=== PATIENT | female | born 1975 | race Hispanic/Latino ===

== ENCOUNTER 2018-02-25 15:41 | Emergency (ER) | payer OTHER ==
[2018-02-25] MEDS ORDERED: NACL 0.9% 1000 ML 1,000 ML IV ONE (15:54)
[2018-02-25 16:21] LABS: Basophils # (Auto) 0.1 K/mm3 (0.0-0.1); Basophils % (Auto) 0.7 % (0.0-1.8); Eosinophils # (Auto) 0.2 K/mm3 (0.0-0.4); Eosinophils % (Auto) 1.2 % (0.0-4.3); Lymphocytes # (Auto) 2.8 K/mm3 (1.2-5.4); Lymphocytes % (Auto) 20.1 % (13.4-35.0); Mean Corpuscular HGB Conc 35 % (30-34); Mean Corpuscular Hemoglobin 31 pg (28-32); Mean Corpuscular Volume 88 fl (79-97); Monocytes # (Auto) 0.6 K/mm3 (0.0-0.8); Monocytes % (Auto) 4.3 % (0.0-7.3); Platelet Count 363 K/mm3 (140-440); Red Blood Count 5.49 M/mm3 (3.65-5.03); Red Cell Distribution Width 12.8 % (13.2-15.2)
[2018-02-25] MEDS ORDERED: HALDOL IM STA ×2 (16:21→17:55)
[2018-02-25] MEDS ORDERED: XYLOCAINE CARDIAC IV ONE (16:21)
--- NOTE | 2018-02-25 16:22 | Emergency Department Report ---
ED General Adult HPI - General Chief complaint: Abdominal Pain Stated complaint: CANCER/INTESTINAL PAIN/SEVERE PAIN/ANXIETY Time Seen by Provider: 02/25/18 16:08 Source: patient, RN notes reviewed, old records reviewed Mode of arrival: Stretcher Limitations: No Limitations - History of Present Illness Initial comments: Gastroenterology: Dr. Simpson Pain Specialist: Dr. Dipak Mills X This is a 42-year-old female. I have evaluated this patient in the past. Her past medical history includes anxiety, depression, drug abuse, narcotic dependence, chronic narcotic use, recently evaluated in this hospital in December for abdominal pain, headache CT scan of the abdomen and pelvis which demonstrated a mass next to the sigmoid colon, suspicious for recurrent or metastatic carcinoma. The patient presents to the ER with a complaint of acute on chronic right-sided abdominal pain. The pain is sharp, burning, aching, intermittent, does not radiate anywhere, and does not really have exacerbating or relieving factors. The patient denies fevers, chills, endorses nausea, denies diarrhea, and denies urinary symptoms. -: Gradual, week(s), month(s), year(s) Location: abdomen Quality: burning, stabbing, aching Consistency: intermittent Improves with: none Worsens with: none Associated Symptoms: loss of appetite, malaise, nausea/vomiting, weakness, other (anxiety, weakness). denies: confusion, chest pain, cough, diaphoresis, fever/chills, headaches, rash, seizure, shortness of breath, syncope - Related Data Home Medications Medication Instructions Recorded Confirmed Last Taken ALPRAZolam [Xanax TAB] 1 mg PO TID PRN 04/24/15 04/24/15 04/23/15 Bentyl 1 tab PO HS 04/24/15 04/24/15 04/23/15 Percocet 10/325 mg 10 - 325 mg PO Q6H 04/24/15 04/25/15 04/24/15 Wellbutrin SR 300 mg PO DAILY 04/24/15 04/24/15 04/21/15 traZODone [Desyrel] 100 mg PO HS 04/24/15 04/24/15 04/23/15 Previous Rx's Medication Instructions Recorded Last Taken Type Ibuprofen [Motrin 800 MG tab] 800 mg PO Q8HR PRN #20 tablet 12/15/17 Unknown Rx Promethazine [Phenergan TAB] 25 mg PO Q6HR PRN #20 tab 12/15/17 Unknown Rx oxyCODONE /ACETAMINOPHEN [Percocet 1 - 2 tab PO Q6HR PRN #14 tablet 12/15/17 Unknown Rx 5/325] Dicyclomine [Bentyl] 10 mg PO QID PRN #20 capsule 02/25/18 Unknown Rx Ondansetron [Zofran Odt] 4 mg PO Q8HR PRN #20 tab.rapdis 02/25/18 Unknown Rx Promethazine [Phenergan SUPPOS] 50 mg PA Q6H PRN #20 supp.rect 02/25/18 Unknown Rx Allergies Allergy/AdvReac Type Severity Reaction Status Date / Time Sulfa (Sulfonamide Allergy Vomiting Verified 12/14/17 20:34 Antibiotics) ED Review of Systems ROS: Stated complaint: CANCER/INTESTINAL PAIN/SEVERE PAIN/ANXIETY Other details as noted in HPI Constitutional: malaise. denies: fever Eyes: denies: eye discharge ENT: denies: epistaxis Respiratory: denies: cough Cardiovascular: denies: chest pain Gastrointestinal: abdominal pain, nausea Genitourinary: denies: dysuria Musculoskeletal: arthralgia, myalgia Skin: denies: rash, lesions Neurological: weakness Psychiatric: anxiety ED Past Medical Hx - Past Medical History Hx Hypertension: Yes Hx Diabetes: Yes Hx of Cancer: Yes (awaiting a defenitive diagnosis) Hx Psychiatric Treatment: Yes (Anxiety, Depression) Additional medical history: Drug abuse, IBS - Surgical History Hx Cholecystectomy: Yes Additional Surgical History: Novasure, Ovarian surgery, Multiple Abd. hernia repair, Hysterectomy, C section - Social History Smoking Status: Current Every Day Smoker - Medications Home Medications: Home Medications Medication Instructions Recorded Confirmed Last Taken Type ALPRAZolam [Xanax TAB] 1 mg PO TID PRN 04/24/15 04/24/15 04/23/15 History Bentyl 1 tab PO HS 04/24/15 04/24/15 04/23/15 History Percocet 10/325 mg 10 - 325 mg PO Q6H 04/24/15 04/25/15 04/24/15 History Wellbutrin SR 300 mg PO DAILY 04/24/15 04/24/15 04/21/15 History traZODone [Desyrel] 100 mg PO HS 04/24/15 04/24/15 04/23/15 History Ibuprofen [Motrin 800 MG tab] 800 mg PO Q8HR PRN #20 tablet 12/15/17 Unknown Rx Promethazine [Phenergan TAB] 25 mg PO Q6HR PRN #20 tab 12/15/17 Unknown Rx oxyCODONE /ACETAMINOPHEN [Percocet 1 - 2 tab PO Q6HR PRN #14 tablet 12/15/17 Unknown Rx 5/325] Dicyclomine [Bentyl] 10 mg PO QID PRN #20 capsule 02/25/18 Unknown Rx Ondansetron [Zofran Odt] 4 mg PO Q8HR PRN #20 tab.rapdis 02/25/18 Unknown Rx Promethazine [Phenergan SUPPOS] 50 mg PA Q6H PRN #20 supp.rect 02/25/18 Unknown Rx ED Physical Exam - General Limitations: No Limitations General appearance: alert, in distress, obese - Head Head exam: Present: atraumatic, normocephalic - Eye Eye exam: Present: normal appearance, EOMI. Absent: nystagmus - ENT ENT exam: Present: normal exam, normal orophraynx, mucous membranes moist, normal external ear exam - Neck Neck exam: Present: normal inspection, full ROM. Absent: tenderness, meningismus - Respiratory Respiratory exam: Present: normal lung sounds bilaterally. Absent: respiratory distress - Cardiovascular Cardiovascular Exam: Present: normal rhythm, tachycardia, normal heart sounds. Absent: systolic murmur, diastolic murmur, rubs, gallop - GI/Abdominal GI/Abdominal exam: Present: soft. Absent: distended, tenderness, guarding, rebound, rigid, pulsatile mass - Extremities Exam Extremities exam: Present: normal inspection, full ROM, other (2+ pulses noted in the bilateral upper, lower extremities. Compartments soft. No long bony tenderness. The pelvis is stable.). Absent: pedal edema, joint swelling, calf tenderness - Back Exam Back exam: Present: normal inspection, full ROM. Absent: tenderness, CVA te nderness (R), paraspinal tenderness, vertebral tenderness - Neurological Exam Neurological exam: Present: alert, oriented X3, CN II-XII intact, other (Extraocular movements intact. Tongue midline. No facial droop. Facial sensation intact to light touch in the V1, V2, V3 distribution bilaterally. 5 and 5 strength in 4 extremities.. Sensation is intact to light touch in 4 extremities.). Absent: motor sensory deficit - Psychiatric Psychiatric exam: Present: anxious - Skin Skin exam: Present: warm, dry, intact, normal color. Absent: rash ED Course Vital Signs 02/25/18 02/25/18 02/25/18 15:50 17:08 17:16 Temperature 97.5 F L Pulse Rate 103 H Respiratory 18 Rate Blood Pressure 161/112 O2 Sat by Pulse 97 96 Oximetry 02/25/18 02/25/18 02/25/18 17:30 17:45 18:00 Temperature Pulse Rate 88 83 Respiratory 11 L 17 Rate Blood Pressure 142/98 161/93 O2 Sat by Pulse 96 95 95 Oximetry 02/25/18 18:15 Temperature Pulse Rate Respiratory Rate Blood Pressure 164/93 O2 Sat by Pulse 95 Oximetry - Reevaluation(s) Reevaluation #1: 02/25/18 17:27 Differential diagnosis, including but not limited to: Irritable bowel syndrome, narcotic dependence, constipation, narcotic bowel syndrome Assessment and plan: 42-year-old female with chronic abdominal pain, had a CT scan at this [facility] within the past 2-1/2 months for same chronic abdominal pain, also on chronic narcotic therapy. Review of [place] prescription database reveals that patient is on chronic oxycodone therapy. High suspicion for narcotic-related bowel pain, narcotic bowel syndrome. We will treat the patient with Haldol, and intravenous lidocaine. Explained to patient see giving him some narcotic bowel syndrome, and recommended that she consult with her pain physician for de-escalation of narcotic therapy. 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 Screening laboratory studies unremarkable with the exception of slight leukocytosis, she's had this in the past, may be related to stress demargination. Abdomen soft and benign, with no rebound, guarding or peritoneal signs. Extensive discussion had with patient and significant other. Through shared decision making, patient prefers not to have CT scan at this [facility], out of concern for ionizing radiation, and increased left eye risk for cancer, tumor, malignancy. Her other objective laboratory studies were unremarkable, she will be given IV fluids, and we will reassess after Haldol and lidocaine administration. Reevaluation #2: 02/25/18 18:49 No active vomiting. Patient wanted to go home. Belly soft. Tachycardia resolved. Patient will be discharged at this time. ED Medical Decision Making - Lab Data Result diagrams: 02/25/18 16:02 02/25/18 16:02 Vital Signs 02/25/18 15:50 Temperature 97.5 F L Pulse Rate 103 H Respiratory 18 Rate Blood Pressure 161/112 Lab Results 02/25/18 02/25/18 02/25/18 Range/Units 15:52 16:02 16:02 WBC 14.0 H (4.5-11.0) K/mm3 RBC 5.49 H (3.65-5.03) M/mm3 Hgb 17.1 H (10.1-14.3) gm/dl Hct 48.3 H (30.3-42.9) % MCV 88 (79-97) fl MCH 31 (28-32) pg MCHC 35 H (30-34) % RDW 12.8 L (13.2-15.2) % Plt Count 363 (140-440) K/mm3 Lymph % (Auto) 20.1 (13.4-35.0) % [place] % (Auto) 4.3 (0.0-7.3) % Eos % (Auto) 1.2 (0.0-4.3) % Baso % (Auto) 0.7 (0.0-1.8) % Lymph # 2.8 (1.2-5.4) K/mm3 [place] # 0.6 (0.0-0.8) K/mm3 Eos # 0.2 (0.0-0.4) K/mm3 Baso # 0.1 (0.0-0.1) K/mm3 Seg Neutrophils % 73.7 H (40.0-70.0) % Seg Neutrophils # 10.3 H (1.8-7.7) K/mm3 Sodium 136 L (137-145) mmol/L Potassium 4.0 (3.6-5.0) mmol/L Chloride 99.4 (98-107) mmol/L Carbon Dioxide 22 (22-30) mmol/L Anion Gap 19 mmol/L BUN 13 (7-17) mg/dL Creatinine 0.6 L (0.7-1.2) mg/dL Estimated GFR > 60 ml/min BUN/Creatinine Ratio 22 % Glucose 141 H (65-100) mg/dL POC Glucose 121 H (70-105) Calcium 9.5 (8.4-10.2) mg/dL Total Bilirubin 0.20 (0.1-1.2) mg/dL AST 21 (5-40) units/L ALT 18 (7-56) units/L Alkaline Phosphatase 92 (35-129) units/L Total Protein 7.5 (6.3-8.2) g/dL Albumin 4.5 (3.9-5) g/dL Albumin/Globulin Ratio 1.5 % Amylase (27-131) units/L Lipase (13-60) units/L HCG, Quant (0-4) mIU/mL 02/25/18 02/25/18 Range/Units 16:02 16:24 WBC (4.5-11.0) K/mm3 RBC (3.65-5.03) M/mm3 Hgb (10.1-14.3) gm/dl Hct (30.3-42.9) % MCV (79-97) fl MCH (28-32) pg MCHC (30-34) % RDW (13.2-15.2) % Plt Count (140-440) K/mm3 Lymph % (Auto) (13.4-35.0) % [place] % (Auto) (0.0-7.3) % Eos % (Auto) (0.0-4.3) % Baso % (Auto) (0.0-1.8) % Lymph # (1.2-5.4) K/mm3 [place] # (0.0-0.8) K/mm3 Eos # (0.0-0.4) K/mm3 Baso # (0.0-0.1) K/mm3 Seg Neutrophils % (40.0-70.0) % Seg Neutrophils # (1.8-7.7) K/mm3 Sodium (137-145) mmol/L Potassium (3.6-5.0) mmol/L Chloride (98-107) mmol/L Carbon Dioxide (22-30) mmol/L Anion Gap mmol/L BUN (7-17) mg/dL Creatinine (0.7-1.2) mg/dL Estimated GFR ml/min BUN/Creatinine Ratio % Glucose (65-100) mg/dL POC Glucose (70-105) Calcium (8.4-10.2) mg/dL Total Bilirubin (0.1-1.2) mg/dL AST (5-40) units/L ALT (7-56) units/L Alkaline Phosphatase (35-129) units/L Total Protein (6.3-8.2) g/dL Albumin (3.9-5) g/dL Albumin/Globulin Ratio % Amylase 59 (27-131) units/L Lipase 62 H (13-60) units/L HCG, Quant < 2 (0-4) mIU/mL Critical care attestation.: If time is entered above; I have spent that time in minutes in the direct care of this critically ill patient, excluding procedure time. ED Disposition Clinical Impression: Abdominal pain Disposition: DC-01 TO HOME OR SELFCARE Is pt being admited?: No Does the pt Need Aspirin: No Condition: Stable Instructions: Abdominal Pain (ED) Additional Instructions: Patient should follow up with their manager of business operations, or their private pain specialist. Symptoms possibly coming from or receiving contribution from narcotic bowel syndrome. I recommend gradual de-escalation of chronic narcotic therapy, and this should be arranged and coordinated with your manager of business operations, or your pain specialist. Symptoms will likely take a few weeks to a few months to resolve. Advance diet as tolerated. I'll awoke with the aforementioned physicians within the next 2 weeks. Please return to the ER right away with lethargy, irritability, projectile vomiting, change in mental status, confusion, inability to speak, inability to breathe, new, worsening or different symptoms. Rehabilitation physicians [facility]: [address] [place], [place] [address] Referrals: MEAGHAN SIMPSON MD [Staff Physician] - 3-5 Days
[2018-02-25 16:26] LABS: Hematocrit 48.3 % (30.3-42.9); Hemoglobin 17.1 gm/dl (10.1-14.3)
[2018-02-25 16:31] LABS: Lipase 62 units/L (13-60)
[2018-02-25 16:34] LABS: Alanine Aminotransferase 18 units/L (7-56); Albumin 4.5 g/dL (3.9-5); BUN/Creatinine Ratio 22; Blood Urea Nitrogen 13 mg/dL (7-17); Calcium 9.5 mg/dL (8.4-10.2); Hemolysis Index 35
[2018-02-25 19:03] VITALS: BP 149/99
== END 2018-02-25 19:03 | disposition home or self-care (01) ==
LOC: ED 15:41
DX: G89.29 Other chronic pain (principal); R10.9 Unspecified abdominal pain; I10 Essential (primary) hypertension; E11.9 Type 2 diabetes mellitus without complications; Z90.710 Acquired absence of both cervix and uterus; Z90.49 Acquired absence of other specified parts of digestive tract; Z88.2 Allergy status to sulfonamides
CPT/HCPCS: 36415; 80053; 82150; 82962; 83690; 84702; 85025; 96372; 96374; 99283; J1630; J2001; J7030; 96361

== ENCOUNTER 2019-12-30 04:46 | Emergency (ER) | payer OTHER ==
[2019-12-30] MEDS ORDERED: hydrALAZINE 20 MG/1 ML INJ IV ONE (05:39)
[2019-12-30 06:18] LABS: Basophils % (Auto) 0.3 % (0.0-1.8); Eosinophils # (Auto) 0.1 K/mm3 (0.0-0.4); Eosinophils % (Auto) 0.9 % (0.0-4.3); Hemoglobin 16.1 gm/dl (10.1-14.3); Lymphocytes # (Auto) 2.6 K/mm3 (1.2-5.4); Lymphocytes % (Auto) 20.5 % (13.4-35.0); Mean Corpuscular HGB Conc 35 % (30-34); Mean Corpuscular Volume 85 fl (79-97); Monocytes # (Auto) 0.7 K/mm3 (0.0-0.8); Monocytes % (Auto) 5.9 % (0.0-7.3); Platelet Count 303 K/mm3 (140-440); Red Blood Count 5.41 M/mm3 (3.65-5.03); Red Cell Distribution Width 12.9 % (13.2-15.2)
[2019-12-30] MEDS ORDERED: ONDANSETRON 4 MG/2 ML INJ IV ONE ×2 (06:33→10:37)
[2019-12-30] MEDS ORDERED: MORPHINE 2 MG/1 ML INJ IV ONE (06:33)
[2019-12-30 06:41] LABS: Blood Urea Nitrogen 8 mg/dL (7-17); Calcium 9.3 mg/dL (8.4-10.2); Hemolysis Index 18
[2019-12-30 06:46] LABS: BUN/Creatinine Ratio 16
--- NOTE | 2019-12-30 06:59 | Emergency Department Report ---
ED Headache HPI - General Chief Complaint: Headache Stated Complaint: HEADACHE BACK PAIN Time Seen by Provider: 12/30/19 06:17 - History of Present Illness Initial Comments: This is a 44-year-old female who states that she has had a headache for the past 3 days. She states that it is largely sharp and involves the back of her head and her back generally. She does not have a stiff neck or photophobia. She denies fever or chills. She has had no focal neurological change. She states that she had a telemedicine consult and they doubled her losartan. Headache was persistent at the time of my encounter. Patient had not yet in medicated. The patient did recall a gradual onset of her headache. Review of prior reconciliation indicates the patient have a history of benzodiazepine abuse. She also tells me that she was "just discharged with pancreatitis". I asked her when/where that was and she stated [facility]. Timing/Duration: other (3 days) Quality: moderate, severe Head Injury Location: occipital Recent Head Trauma: frequent headaches (States often associated with hypertension) Associated Symptoms: denies symptoms Allergies/Adverse Reactions: Allergies Sulfa (Sulfonamide Antibiotics) Allergy (Verified 12/14/17 20:34) Vomiting Home Medications: Ambulatory Orders ALPRAZolam [Xanax TAB] 1 mg PO TID PRN 04/24/15 Bentyl 1 tab PO HS 04/24/15 Percocet 10/325 mg 10 - 325 mg PO Q6H 04/24/15 Wellbutrin SR 300 mg PO DAILY 04/24/15 traZODone [Desyrel] 100 mg PO HS 04/24/15 Ibuprofen [Motrin 800 MG tab] 800 mg PO Q8HR PRN #20 tablet 12/15/17 Promethazine [Phenergan TAB] 25 mg PO Q6HR PRN #20 tab 12/15/17 oxyCODONE /ACETAMINOPHEN [Percocet 5/325] 1 - 2 tab PO Q6HR PRN #14 tablet 12/15/17 Dicyclomine [Bentyl] 10 mg PO QID PRN #20 capsule 02/25/18 Promethazine [Phenergan SUPPOS] 50 mg NM Q6H PRN #20 supp.rect 02/25/18 ALPRAZolam [Xanax TAB] 1 mg PO QID PRN #6 tab 03/02/18 Butalb/Acetamin/Caff 50-325-40 [Fioricet 50-325-40] 1 tab PO Q6HR PRN #7 tab 12/30/19 Ondansetron [Zofran ODT TAB] 4 mg PO Q8HR PRN #7 tab.rapdis 12/30/19 labetaloL [Labetalol 200mg TAB] 200 mg PO BID #60 tablet 12/30/19 ED Review of Systems ROS: Stated complaint: HEADACHE BACK PAIN Other details as noted in HPI Constitutional: denies: chills, fever Eyes: denies: eye pain, vision change ENT: denies: ear pain, throat pain Respiratory: denies: cough, shortness of breath Cardiovascular: denies: chest pain, palpitations Endocrine: no symptoms reported Gastrointestinal: nausea. denies: abdominal pain Genitourinary: denies: urgency, dysuria, discharge Musculoskeletal: denies: back pain, arthralgia Skin: denies: rash, lesions Neurological: denies: headache, weakness, paresthesias Psychiatric: denies: anxiety, depression Hematological/Lymphatic: denies: easy bleeding, easy bruising ED Past Medical Hx - Past Medical History Hx Hypertension: Yes Hx Diabetes: Yes Hx Psychiatric Treatment: Yes (Anxiety, Depression) Additional medical history: Drug abuse, IBS - Surgical History Hx Cholecystectomy: Yes Additional Surgical History: Novasure, Ovarian surgery, Multiple Abd. hernia repair, Hysterectomy, C section - Social History Smoking Status: Current Every Day Smoker Substance Use Type: None - Medications Home Medications: Home Medications Medication Instructions Recorded Confirmed Last Taken Type ALPRAZolam [Xanax TAB] 1 mg PO TID PRN 04/24/15 04/24/15 04/23/15 History Bentyl 1 tab PO HS 04/24/15 04/24/15 04/23/15 History Percocet 10/325 mg 10 - 325 mg PO Q6H 04/24/15 04/25/15 04/24/15 History Wellbutrin SR 300 mg PO DAILY 04/24/15 04/24/15 04/21/15 History traZODone [Desyrel] 100 mg PO HS 04/24/15 04/24/15 04/23/15 History Ibuprofen [Motrin 800 MG tab] 800 mg PO Q8HR PRN #20 tablet 12/15/17 Unknown Rx Promethazine [Phenergan TAB] 25 mg PO Q6HR PRN #20 tab 12/15/17 Unknown Rx oxyCODONE /ACETAMINOPHEN [Percocet 1 - 2 tab PO Q6HR PRN #14 tablet 12/15/17 Unknown Rx 5/325] Dicyclomine [Bentyl] 10 mg PO QID PRN #20 capsule 02/25/18 Unknown Rx Promethazine [Phenergan SUPPOS] 50 mg NM Q6H PRN #20 supp.rect 02/25/18 Unknown Rx ALPRAZolam [Xanax TAB] 1 mg PO QID PRN #6 tab 03/02/18 Unknown Rx Butalb/Acetamin/Caff 50-325-40 1 tab PO Q6HR PRN #7 tab 12/30/19 Unknown Rx [Fioricet 50-325-40] Ondansetron [Zofran ODT TAB] 4 mg PO Q8HR PRN #7 tab.rapdis 12/30/19 Unknown Rx labetaloL [Labetalol 200mg TAB] 200 mg PO BID #60 tablet 12/30/19 Unknown Rx ED Physical Exam - General Limitations: Physical Limitation General appearance: obese - Head Head exam: Present: atraumatic, normocephalic - Eye Eye exam: Present: normal appearance. Absent: scleral icterus - ENT ENT exam: Present: mucous membranes moist - Neck Neck exam: Present: normal inspection. Absent: tenderness, meningismus - Respiratory Respiratory exam: Present: normal lung sounds bilaterally. Absent: respiratory distress - Cardiovascular Cardiovascular Exam: Present: regular rate, normal rhythm. Absent: systolic murmur, diastolic murmur, rubs, gallop - GI/Abdominal GI/Abdominal exam: Present: soft, normal bowel sounds. Absent: distended, tenderness, guarding, rebound - Extremities Exam Extremities exam: Present: normal inspection - Back Exam Back exam: Present: normal inspection - Neurological Exam Neurological exam: Present: alert, oriented X3, CN II-XII intact. Absent: motor sensory deficit - Psychiatric Psychiatric exam: Present: normal affect, normal mood - Skin Skin exam: Present: warm, dry, intact, normal color. Absent: rash ED Course Vital Signs 12/30/19 12/30/19 12/30/19 05:02 06:09 06:54 Temperature 98.6 F Pulse Rate 87 90 92 H Respiratory 20 18 Rate Blood Pressure 200/120 Blood Pressure 200/120 173/104 [Left] O2 Sat by Pulse 97 98 Oximetry 12/30/19 12/30/19 12/30/19 08:49 10:44 10:46 Temperature Pulse Rate 90 90 Respiratory Rate Blood Pressure 173/105 Blood Pressure 179/109 173/105 [Left] O2 Sat by Pulse 95 98 Oximetry 12/30/19 12/30/19 11:00 11:37 Temperature Pulse Rate 87 Respiratory Rate Blood Pressure 189/119 202/127 Blood Pressure [Left] O2 Sat by Pulse Oximetry - Reevaluation(s) Reevaluation #1: Patient appears comfortable and in no distress on reevaluation. She is neurologically intact. Review of her prior records does indicate that she has a history of narcotics dependency and pain management. Her blood pressure is now about 170/100. She has been given additional medication for this. Her CTAs and plain CTs are normal. She states that "my headache is gone but I need something for my migraine". She cannot be more specific as to what that means. She does not have any prodromal or migraine related type symptoms. She is appropriate for outpatient management. 12/30/19 11:47 ED Medical Decision Making - Lab Data Result diagrams: 12/30/19 05:53 12/30/19 05:53 Critical care attestation.: If time is entered above; I have spent that time in minutes in the direct care of this critically ill patient, excluding procedure time. ED Disposition Clinical Impression: Uncontrolled hypertension Cephalgia Qualifiers: Headache type: unspecified Headache chronicity pattern: acute headache Intractability: not intractable Qualified Code(s): R51.9 - Headache, unspecified Disposition: DC-01 TO HOME OR SELFCARE Is pt being admited?: No Does the pt Need Aspirin: No Condition: Stable Instructions: Hypertension (ED), Acute Headache (ED), Migraine Headache (ED) Additional Instructions: Return any acute change or problem. Frequent monitoring of your blood pressure is necessary. Follow-up with the [facility] preferably tomorrow. Prescriptions: Butalb/Acetamin/Caff 50-325-40 [Fioricet 50-325-40] 1 tab PO Q6HR PRN #7 tab PRN Reason: Headache labetaloL [Labetalol 200mg TAB] 200 mg PO BID #60 tablet Ondansetron [Zofran ODT TAB] 4 mg PO Q8HR PRN #7 tab.rapdis PRN Reason: Nausea Referrals: PRIMARY CARE, [Primary Care Provider] - 3-5 Days [facility] [Provider Group] - 24 Hours Time of Disposition: 11:49
--- NOTE | 2019-12-30 06:59 | Cat Scan Report ---
CT HEAD/BRAIN WO CON INDICATION / CLINICAL INFORMATION: Headache. TECHNIQUE: All CT scans at this location are performed using CT dose reduction for ALARA by means of automated e xposure control. COMPARISON: None available. FINDINGS: The ventricular system is normal in size and configuration. No focal lesion or mass effect is seen. T here is no evidence of intracranial hemorrhage or major vessel occlusion. There is mucosal thickening and fluid in both maxillary antra, right greater than left. The other par anasal sinuses and mastoid air cells are clear. The calvarium is intact. IMPRESSION: 1. No acute intracranial abnormality. 2. Bilateral acute maxillary sinusitis, greater on the right. Signer Name: Tomas London MD Signed: 12/30/2019 6:55 AM Workstation Name: [id number]
[2019-12-30 07:24] LABS: Amphetamine Screen,Urine Negative; Benzodiazepines Screen,Urine Negative; Cannabinoid Screen,Urine Negative; Cocaine Screen,Urine Negative; Methadone Screen,Urine Negative; Opiate Screen,Urine Negative
[2019-12-30 07:29] LABS: Bacteria,Urine 2+ /HPF (Negative); Bilirubin,Urine NEG (Negative); Blood,Urine SM (Negative); Color,Urine Straw (Yellow); Urobilinogen,Urine < 2.0 mg/dL (<2.0)
[2019-12-30] MEDS ORDERED: HYDROmorphone 1 MG/1 ML INJ IV ONE (08:33)
[2019-12-30] MEDS ORDERED: diphenhydrAMINE 50 MG/ML VIAL IV ONE (08:33)
[2019-12-30 09:18] LABS: HCG Qualitative,Urine Negative (Negative)
[2019-12-30] MEDS ORDERED: ONDANSETRON 4 MG/2 ML INJ ONE (09:32)
--- NOTE | 2019-12-30 10:28 | Cat Scan Report ---
CT angio head INDICATION / CLINICAL INFORMATION: 44 years Female; MAIN. Headache TECHNIQUE: Thin cut axial images obtained through the head during IV bolus contrast administration. S agittal, coronal, and 3 plane MIP reconstructions performed by the technologist. NASCET type criteria used evaluate stenoses. Automated exposure control utilized for radiation reduction purposes. COMPARISON: None available. FINDINGS: INTERNAL CAROTID ARTERIES: No significant narrowing appreciated. Minimal atherosclerotic disease note d. VERTEBROBASILAR SYSTEM: No significant narrowing appreciated. DISTAL BRANCHES: Distal branches of the anterior, middle, and posterior cerebral arteries are fairly symmetric in appearance and number. ANEURYSM: None identified. ADDITIONAL FINDINGS: Moderate mucosal thickening with significant air-fluid level seen in both maxill teja antra-acute sinusitis suggested, which may be a source of headaches. Developmental venous anomaly seen in the right frontal lobe-of no clinical significance. IMPRESSION: 1. No significant abnormality on this CTA of the head. 2. Acute sinus inflammatory disease suggested. Signer Name: Marquis Stevens MD, III Signed: 12/30/2019 10:23 AM Workstation Name: [id number]
[2019-12-30] MEDS ORDERED: KETOROLAC 30 MG/1 ML INJ ONE (10:35)
--- NOTE | 2019-12-30 10:36 | Cat Scan Report ---
CT angio neck INDICATION / CLINICAL INFORMATION: 44 years Female; headache. TECHNIQUE: Thin cut axial images obtained through the head during IV bolus contrast administration. S agittal, coronal, and 3 plane MIP reconstructions performed by the technologist. NASCET type criteria used evaluate stenoses. All CT scans at this location are performed using CT dose reduction for ALAR A by means of automated exposure control. COMPARISON: None available. FINDINGS: ARCH: Normal aortic arch branching suggested. CAROTID ARTERIES: The visualized common and internal carotid arteries are widely patent. VERTEBRAL ARTERIES: Slight left dominant vertebral system seen. No significant stenosis appreciated. ADDITIONAL FINDINGS: Air-fluid levels seen in both maxillary antra with significant mucosal thickenin g seen on the right, as well. These findings certainly could be a cause for patient's headaches. There is mild asymmetry in the appearance of the vocal cords, although no discrete lesion is identifi ed. Please clinically correlate. IMPRESSION: No significant stenosis appreciated on this CTA of the neck. Signer Name: Marquis Stevens MD, III Signed: 12/30/2019 10:32 AM Workstation Name: [id number]
[2019-12-30] MEDS ORDERED: KETOROLAC 30 MG/1 ML INJ IV ONE (10:38)
[2019-12-30] MEDS ORDERED: METOCLOPRAMIDE 10 MG/2 ML INJ ONE (10:43)
[2019-12-30] MEDS ORDERED: METOCLOPRAMIDE 10 MG/2 ML INJ IV ONE (10:45)
[2019-12-30 12:12] VITALS: BP 169/103
== END 2019-12-30 12:12 | disposition home or self-care (01) ==
LOC: ED 04:46
DX: R51.9 Headache, unspecified (principal); M54.6 Pain in thoracic spine; I10 Essential (primary) hypertension; E11.9 Type 2 diabetes mellitus without complications; F41.9 Anxiety disorder, unspecified; F32.9 Major depressive disorder, single episode, unspecified; F17.200 Nicotine dependence, unspecified, uncomplicated; Z90.710 Acquired absence of both cervix and uterus; Z98.890 Other specified postprocedural states; Z79.1 Long term (current) use of non-steroidal anti-inflammatories (NSAID); Z79.899 Other long term (current) drug therapy; Z88.2 Allergy status to sulfonamides
CPT/HCPCS: 36415; 70450; 70496; 70498; 80048; 80307; 81001; 81025; 84703; 85025; 96374; 96375; 96376; 99285; J0360; J1170; J1200; J1885; J2270; J2405; J2765; Q9967

== ENCOUNTER 2020-08-17 07:12 | Emergency (ER) | payer OTHER ==
[2020-08-17] MEDS ORDERED: SODIUM CHLORIDE 0.9% 500 ML 500 ML IV ONE (07:48)
[2020-08-17] MEDS ORDERED: SODIUM CHLORIDE 0.9% 1000 ML IV SOLN IV ONE (07:53)
--- NOTE | 2020-08-17 07:53 | Event Note ---
ED Screening Note ED Screening Note: reports broken ac in her home she has been laying in sweat and now has numerous boils. low grade temp and tachycardia-- ? dehydration from heat code sepsis called by RN This initial assessment/diagnostic orders/clinical plan/treatment(s) is/are subject to change based on patients health status, clinical progression and re- assessment by fellow clinical providers in the ED. Further treatment and workup at subsequent clinical providers discretion. Patient/guardian urged not to elope from the ED as their condition may be serious if not clinically assessed and managed. Initial orders include: lab xray cultures
[2020-08-17] MEDS ORDERED: cefTRIAXone/NS 2 GM/100 ML 2 GM/100 ML BAG IV ONE (08:06)
--- NOTE | 2020-08-17 08:22 | XRay Report ---
CHEST 1 VIEW INDICATION: possible Sepsis. Fever. Metastatic ovarian cancer. COMPARISON: 10/10/2019 FINDINGS: Support devices: None. Heart: Within normal limits. Lungs/Pleura: No acute air space or interstitial disease. Additional findings: None. IMPRESSION: No acute findings. Signer Name: Saman Seth Jr, MD Signed: 08/17/2020 8:17 AM Workstation Name: [id number]
[2020-08-17 08:23] LABS: Basophils # (Auto) 0.1 K/mm3 (0.0-0.1); Basophils % (Auto) 0.4 % (0.0-1.8); Eosinophils # (Auto) 0.1 K/mm3 (0.0-0.4); Eosinophils % (Auto) 1.2 % (0.0-4.3); Hematocrit 35.1 % (30.3-42.9); Hemoglobin 12.1 gm/dl (10.1-14.3); Lymphocytes # (Auto) 1.6 K/mm3 (1.2-5.4); Lymphocytes % (Auto) 13.1 % (13.4-35.0); Mean Corpuscular HGB Conc 35 % (30-34); Mean Corpuscular Volume 85 fl (79-97); Monocytes % (Auto) 8.2 % (0.0-7.3); Platelet Count 343 K/mm3 (140-440); Red Blood Count 4.14 M/mm3 (3.65-5.03); Red Cell Distribution Width 13.3 % (13.2-15.2)
[2020-08-17 08:33] LABS: INR 0.91 (0.87-1.13)
--- NOTE | 2020-08-17 08:37 | Emergency Department Report ---
HPI - General Chief Complaint: Skin/Abscess/Foreign Body Time Seen by Provider: 08/17/20 07:52 - HPI HPI: 44-year-old female with history of hypertension, DM 2, and ovarian cancer not currently on treatment presents complaining of 3 weeks of multiple painful boils. She reports that she has had a boil on her right posterior hand and left lateral arm for approximately 3 weeks. She states the pain and swelling as well as the redness at both sites have gotten worse over the last 3 weeks and she developed nausea with several episodes of vomiting. She also states that her air conditioning is broken at her home and says she has been sitting in a pile of sweat. She has not tried taking any antibiotics or applying anything for her symptoms. She reports that the boil on her left arm popped and drained pus last night. She says she has been having subjective fevers but this is difficult to discern given that her air conditioning is broken. She denies any vision change, headache, neck pain, chest pain, shortness of breath, abdominal pain, dysuria, or any other complaints. ED Past Medical Hx - Past Medical History Previous Medical History?: Yes Hx Hypertension: Yes Hx Diabetes: Yes Hx Psychiatric Treatment: Yes (Anxiety, Depression) Additional medical history: Drug abuse, IBS, ovarian cancer - Surgical History Hx Cholecystectomy: Yes Additional Surgical History: Novasure, Ovarian surgery, Multiple Abd. hernia repair, Hysterectomy, C section - Social History Smoking Status: Current Every Day Smoker Substance Use Type: None - Medications Home Medications: Home Medications Medication Instructions Recorded Confirmed Last Taken Type ALPRAZolam [Xanax TAB] 1 mg PO TID PRN 04/24/15 04/24/15 04/23/15 History Bentyl 1 tab PO HS 04/24/15 04/24/15 04/23/15 History Percocet 10/325 mg 10 - 325 mg PO Q6H 04/24/15 04/25/15 04/24/15 History Wellbutrin SR 300 mg PO DAILY 04/24/15 04/24/15 04/21/15 History traZODone [Desyrel] 100 mg PO HS 04/24/15 04/24/15 04/23/15 History Ibuprofen [Motrin 800 MG tab] 800 mg PO Q8HR PRN #20 tablet 12/15/17 Unknown Rx Promethazine [Phenergan TAB] 25 mg PO Q6HR PRN #20 tab 12/15/17 Unknown Rx oxyCODONE /ACETAMINOPHEN [Percocet 1 - 2 tab PO Q6HR PRN #14 tablet 12/15/17 Unknown Rx 5/325] Dicyclomine [Bentyl] 10 mg PO QID PRN #20 capsule 02/25/18 Unknown Rx Promethazine [Phenergan SUPPOS] 50 mg OR Q6H PRN #20 supp.rect 02/25/18 Unknown Rx ALPRAZolam [Xanax TAB] 1 mg PO QID PRN #6 tab 03/02/18 Unknown Rx Butalb/Acetamin/Caff 50-325-40 1 tab PO Q6HR PRN #7 tab 12/30/19 Unknown Rx [Fioricet 50-325-40] Ondansetron [Zofran ODT TAB] 4 mg PO Q8HR PRN #7 tab.rapdis 12/30/19 Unknown Rx labetaloL [Labetalol 200mg TAB] 200 mg PO BID #60 tablet 12/30/19 Unknown Rx ED Review of Systems ROS: Stated complaint: 2 ABSCESS Other details as noted in HPI Constitutional: fever. denies: chills Eyes: denies: eye pain, vision change ENT: denies: throat pain, congestion Respiratory: denies: cough, shortness of breath Cardiovascular: denies: chest pain, palpitations, syncope Endocrine: excessive sweating Gastrointestinal: nausea, vomiting. denies: abdominal pain, diarrhea Genitourinary: denies: dysuria, frequency Musculoskeletal: denies: back pain, myalgia Skin: lesions Neurological: denies: headache, weakness, numbness Physical Exam - Physical Exam Vital Signs: Vital Signs 08/17/20 07:49 Temperature 100.2 F H Pulse Rate 111 H Respiratory 16 Rate Blood Pressure 147/97 [Right] O2 Sat by Pulse 96 Oximetry Physical Exam: GENERAL: Well developed and well nourished. In moderate distress HEENT: Normocephalic. No obvious signs of trauma. Dry mucous membranes EYES: Extraocular movements are intact. Pupils are equal round and reactive to light bilaterally NECK: Supple. Trachea is midline. LUNGS: Nonlabored breathing. Equal chest rise bilaterally. Clear to auscultation bilaterally. HEART/CARDIOVASCULAR: Mild tachycardia but with regular rhythm. No murmurs or rubs. VASCULAR: 2+ peripheral pulses. Cap refill < 2 seconds ABDOMEN: Abdomen is soft and nondistended. There is no significant tenderness, guarding or rebound. SKIN: Skin is warm and dry. To the dorsum of the right hand is a large abscess with overlying erythema and fluctuance. To the lateral aspect of the left mid arm is another large abscess with overlying fluctuance and erythema with a central punctum which is draining some purulent material NEURO: Patient is awake, alert, and oriented. application integration architect II-XII grossly intact. No focal deficits. Normal motor and sensory exam throughout. Normal speech. MUSCULOSKELETAL: No obvious deformities with the exception of swelling at the site of abscesses as noted. Range of motion of all 5 fingers of the right hand is severely limited. Patient is unable to fully flex or extend all of her fingers secondary to swelling and pain. Sensation is intact throughout median, ulnar, and radial nerve distributions. ED Course Vital Signs 08/17/20 07:49 Temperature 100.2 F H Pulse Rate 111 H Respiratory 16 Rate Blood Pressure 147/97 [Right] O2 Sat by Pulse 96 Oximetry - I & D Right Hand Type of Procedure: Simple Site: dorsum Blade Size: 11 I & D Procedure: betadine prep Progress: 3 cc of lidocaine 1% with epinephrine were injected. A 1 cm incision was made with subsequent drainage of copious blood and purulent material Left Arm Type of Procedure: Simple Site: mid Blade Size: 11 I & D Procedure: betadine prep Progress: Approximately 2 cc of lidocaine 1% with epinephrine were injected. 1.5 cm incision was made with subsequent drainage of copious purulent material ED Medical Decision Making - Lab Data Result diagrams: 08/17/20 07:49 08/17/20 07:49 Lab Results 08/17/20 08/17/20 08/17/20 Range/Units 07:49 07:49 07:49 WBC 12.3 H (4.5-11.0) K/mm3 RBC 4.14 (3.65-5.03) M/mm3 Hgb 12.1 (10.1-14.3) gm/dl Hct 35.1 (30.3-42.9) % MCV 85 (79-97) fl MCH 29 (28-32) pg MCHC 35 H (30-34) % RDW 13.3 (13.2-15.2) % Plt Count 343 (140-440) K/mm3 Lymph % (Auto) 13.1 L (13.4-35.0) % [place] % (Auto) 8.2 H (0.0-7.3) % Eos % (Auto) 1.2 (0.0-4.3) % Baso % (Auto) 0.4 (0.0-1.8) % Lymph # (Auto) 1.6 (1.2-5.4) K/mm3 [place] # (Auto) 1.0 H (0.0-0.8) K/mm3 Eos # (Auto) 0.1 (0.0-0.4) K/mm3 Baso # (Auto) 0.1 (0.0-0.1) K/mm3 Seg Neutrophils % 77.1 H (40.0-70.0) % Seg Neutrophils # 9.5 H (1.8-7.7) K/mm3 PT 12.9 (12.2-14.9) Sec. INR 0.91 (0.87-1.13) VBG pH (7.320-7.420) Sodium 135 L (137-145) mmol/L Potassium 3.8 (3.6-5.0) mmol/L Chloride 98.5 (98-107) mmol/L Carbon Dioxide 26 (22-30) mmol/L Anion Gap 14 mmol/L BUN 13 (7-17) mg/dL Creatinine 0.5 L (0.6-1.2) mg/dL Estimated GFR > 60 ml/min BUN/Creatinine Ratio 26 % Glucose 119 H (65-100) mg/dL Lactic Acid (0.7-2.0) mmol/L Calcium 9.2 (8.4-10.2) mg/dL Total Bilirubin 0.30 (0.1-1.2) mg/dL AST 12 (5-40) units/L ALT 8 (7-56) units/L Alkaline Phosphatase 92 (35-129) units/L Total Protein 6.9 (6.3-8.2) g/dL Albumin 3.7 L (3.9-5) g/dL Albumin/Globulin Ratio 1.2 % HCG, Qual (Negative) 06/16/21 06/16/21 06/16/21 Range/Units 07:49 07:49 08:38 WBC (4.5-11.0) K/mm3 RBC (3.65-5.03) M/mm3 Hgb (10.1-14.3) gm/dl Hct (30.3-42.9) % MCV (79-97) fl MCH (28-32) pg MCHC (30-34) % RDW (13.2-15.2) % Plt Count (140-440) K/mm3 Lymph % (Auto) (13.4-35.0) % [place] % (Auto) (0.0-7.3) % Eos % (Auto) (0.0-4.3) % Baso % (Auto) (0.0-1.8) % Lymph # (Auto) (1.2-5.4) K/mm3 [place] # (Auto) (0.0-0.8) K/mm3 Eos # (Auto) (0.0-0.4) K/mm3 Baso # (Auto) (0.0-0.1) K/mm3 Seg Neutrophils % (40.0-70.0) % Seg Neutrophils # (1.8-7.7) K/mm3 PT (12.2-14.9) Sec. INR (0.87-1.13) VBG pH 7.415 (7.320-7.420) Sodium (137-145) mmol/L Potassium (3.6-5.0) mmol/L Chloride (98-107) mmol/L Carbon Dioxide (22-30) mmol/L Anion Gap mmol/L BUN (7-17) mg/dL Creatinine (0.6-1.2) mg/dL Estimated GFR ml/min BUN/Creatinine Ratio % Glucose (65-100) mg/dL Lactic Acid 0.90 (0.7-2.0) mmol/L Calcium (8.4-10.2) mg/dL Total Bilirubin (0.1-1.2) mg/dL AST (5-40) units/L ALT (7-56) units/L Alkaline Phosphatase (35-129) units/L Total Protein (6.3-8.2) g/dL Albumin (3.9-5) g/dL Albumin/Globulin Ratio % HCG, Qual Negative (Negative) - Radiology Data CHEST 1 VIEW INDICATION: possible Sepsis. Fever. Metastatic ovarian cancer. COMPARISON: 10/10/2019 FINDINGS: Support devices: None. Heart: Within normal limits. Lungs/Pleura: No acute air space or interstitial disease. Additional findings: None. IMPRESSION: No acute findings. Signer Name: Saman Seth Jr, MD Signed: 08/17/2020 7:17 AM Workstation Name: [id number] - Medical Decision Making 44-year-old female presenting with abscesses to the right dorsum of the hand as well as left proximal arm. The left arm abscess is actively draining. On initial assessment, the patient is noted to be mildly tachycardic and with tem perature 100.2. Normal oxygen saturation and slightly elevated blood pressure. Physical examination reveals dry mucous membranes as well as the abscesses noted. Sepsis order set was initiated in triage with full set of labs and cultures as well as 30 mL/kg of IV fluids. We will give IV ceftriaxone and vancomycin. We will plan to perform incision and drainage of both abscesses. However, given that the patient is septic with systemic symptoms of nausea/vomiting and an abscess to the right hand, we will plan to transfer to a facility that has hand surgery on-call once stabilized and with all diagnostic studies returned. Labs have returned and reveal mild leukocytosis of 12.3. There is no significant anemia. There is no significant electrolyte abnormality. Kidney function is normal. Although the labs are relatively normal, given that the patient has a hand abscess and sepsis with elevated respiratory rate, temperature, and heart rate as well as leukocytosis, I still feel that she needs transfer to a facility that has hand surgery on-call and will initiate this transfer. Incision and drainage successfully completed for both abscesses with drainage of copious purulent material. Patient has been accepted for transfer to [facility] by Dr. Espinal of hand surgery. Initially plan to order x-rays of the right hand and left arm to assess for evidence of retained foreign body. However, given that the patient has been accepted for transfer we will defer this to the accepting facility given that they would likely require imaging conducted at their facility. Critical care attestation.: If time is entered above; I have spent that time in minutes in the direct care of this critically ill patient, excluding procedure time. ED Disposition Clinical Impression: Abscess of right hand, Abscess of left arm Sepsis Qualifiers: Sepsis acute organ dysfunction status: unspecified Disposition: DC/TX-70 ANOTHER TYPE HLTHCARE Is pt being admited?: No Condition: Stable Referrals: PRIMARY CARE, [Primary Care Provider] - 3-5 Days
[2020-08-17 08:41] LABS: Alanine Aminotransferase 8 units/L (7-56); Albumin 3.7 g/dL (3.9-5); Blood Urea Nitrogen 13 mg/dL (7-17); Calcium 9.2 mg/dL (8.4-10.2); Hemolysis Index 20
[2020-08-17 08:42] LABS: BUN/Creatinine Ratio 26
[2020-08-17] MEDS ORDERED: VANCOMYCIN 1,250 MG in SODIUM CHLORIDE 0.9% 500 ML 500 ML IV ONE (09:00)
[2020-08-17] MEDS ORDERED: ONDANSETRON 4 MG/2 ML INJ IV ONE (09:28)
[2020-08-17] MEDS ORDERED: HYDROmorphone 1 MG/1 ML INJ IV ONE ×2 (09:28→10:53)
[2020-08-17] MEDS ORDERED: LIDOCAINE 1%/EPINEPHRINE 1:100,000 VIAL (20 ML) INFILTRATI ONE (09:35)
[2020-08-17 14:36] VITALS: BP 139/88
== END 2020-08-17 14:54 | disposition other institution (70) ==
LOC: ED 07:12
DX: L02.511 Cutaneous abscess of right hand (principal); L02.414 Cutaneous abscess of left upper limb; A41.9 Sepsis, unspecified organism; I10 Essential (primary) hypertension; E11.9 Type 2 diabetes mellitus without complications; F41.9 Anxiety disorder, unspecified; F32.9 Major depressive disorder, single episode, unspecified; F17.200 Nicotine dependence, unspecified, uncomplicated; Z90.49 Acquired absence of other specified parts of digestive tract; Z98.890 Other specified postprocedural states; Z79.899 Other long term (current) drug therapy; Z88.2 Allergy status to sulfonamides
CPT/HCPCS: 10061; 36415; 71045; 80053; 82010; 82140; 82805; 84703; 85025; 85610; 87040; 96365; 96366; 96367; 96375; 96376; 99285; J0696; J1170; J2405; J3370; J7030; J7040; J0690

== ENCOUNTER 2020-11-28 15:33 | Emergency (ER) | payer OTHER ==
[2020-11-28] MEDS ORDERED: IBUPROFEN 600 MG TAB PO ONE (17:45)
--- NOTE | 2020-11-28 17:52 | Emergency Department Report ---
- General Chief complaint: Skin/Abscess/Foreign Body Stated complaint: BOIL ON BOTH SHOULDERS Time Seen by Provider: 11/28/20 17:42 Source: patient Mode of arrival: Stretcher Limitations: No Limitations - History of Present Illness Initial comments: The patient was evaluated in the emergency department for symptoms described in the history of present illness. He/she was evaluated in the context of the global COVID-19 pandemic, which necessitated consideration that the patient might be at risk for infection with the virus that causes COVID-19. Institutional protocols and algorithms that pertain to the evaluation of patients at risk for COVID-19 are in a state of rapid change based on information released by regulatory bodies including the CDC and federal and state organizations. These policies and algorithms were followed during the patient's care in the emergency department. Please note that these policies, procedures and recommendations changed on a rapid basis. 45-year-old female presents to the emergency room with a past medical history of hypertension depression anxiety and diabetes complaining of abscess to both of her shoulders. Patient endorsed that she has been on a drug binge and when she using IV drug use of meth and heroin. Patient states that she noticed the left shoulder pain when she bumped her left shoulder a couple days ago. Patient reports that she has been skin popping with drugs. She denies any fever or chills. Patient reports that she is partially vaccinated for Covid . She does report a history of sulfur allergies that causes hives. MD complaint: abscess/boil Onset/Timin -: days(s) Tetanus Up to Date: no Severity: severe Severity scale (0 -10): 8 Quality: burning, stabbing, sharp Consistency: constant Improves with: none Worsens with: palpation Context: IVDA (Skin popping) Associated symptoms: denies other symptoms Treatments Prior to Arrival: none - Related Data Home Medications Medication Instructions Recorded Confirmed Last Taken ALPRAZolam [Xanax TAB] 1 mg PO TID PRN 04/24/15 04/24/15 04/23/15 Bentyl 1 tab PO HS 04/24/15 04/24/15 04/23/15 Percocet 10/325 mg 10 - 325 mg PO Q6H 04/24/15 04/25/15 04/24/15 Wellbutrin SR 300 mg PO DAILY 04/24/15 04/24/15 04/21/15 traZODone [Desyrel] 100 mg PO HS 04/24/15 04/24/15 04/23/15 Previous Rx's Medication Instructions Recorded Last Taken Type Promethazine [Phenergan TAB] 25 mg PO Q6HR PRN #20 tab 12/15/17 Unknown Rx oxyCODONE /ACETAMINOPHEN [Percocet 1 - 2 tab PO Q6HR PRN #14 tablet 12/15/17 Unknown Rx 5/325] Dicyclomine [Bentyl] 10 mg PO QID PRN #20 capsule 02/25/18 Unknown Rx Promethazine [Phenergan SUPPOS] 50 mg MO Q6H PRN #20 supp.rect 02/25/18 Unknown Rx ALPRAZolam [Xanax TAB] 1 mg PO QID PRN #6 tab 03/02/18 Unknown Rx Butalb/Acetamin/Caff 50-325-40 1 tab PO Q6HR PRN #7 tab 12/30/19 Unknown Rx [Fioricet 50-325-40] Ondansetron [Zofran ODT TAB] 4 mg PO Q8HR PRN #7 tab.rapdis 12/30/19 Unknown Rx labetaloL [Labetalol 200mg TAB] 200 mg PO BID #60 tablet 12/30/19 Unknown Rx Doxycycline Hyclate [Doxycycline 100 mg PO Q12HR 10 Days #20 tab 11/28/20 Unknown Rx Hyclate TAB] Ibuprofen [Motrin 800 MG tab] 800 mg PO Q8HR PRN #20 tablet 11/28/20 Unknown Rx cephALEXin [Keflex] 500 mg PO Q12HR 10 Days #20 cap 11/28/20 Unknown Rx Allergies Allergy/AdvReac Type Severity Reaction Status Date / Time Sulfa (Sulfonamide Allergy Vomiting Verified 12/14/17 20:34 Antibiotics) Abscess Boil HPI - HPI Chief Complaint: Skin/Abscess/Foreign Body Stated Complaint: BOIL ON BOTH SHOULDERS Time Seen by Provider: 11/28/20 17:42 Home Medications: Home Medications Medication Instructions Recorded Confirmed Last Taken ALPRAZolam [Xanax TAB] 1 mg PO TID PRN 04/24/15 04/24/15 04/23/15 Bentyl 1 tab PO HS 04/24/15 04/24/15 04/23/15 Percocet 10/325 mg 10 - 325 mg PO Q6H 04/24/15 04/25/15 04/24/15 Wellbutrin SR 300 mg PO DAILY 04/24/15 04/24/15 04/21/15 traZODone [Desyrel] 100 mg PO HS 04/24/15 04/24/15 04/23/15 Previous Rx's Medication Instructions Recorded Last Taken Type Promethazine [Phenergan TAB] 25 mg PO Q6HR PRN #20 tab 12/15/17 Unknown Rx oxyCODONE /ACETAMINOPHEN [Percocet 1 - 2 tab PO Q6HR PRN #14 tablet 12/15/17 Unknown Rx 5/325] Dicyclomine [Bentyl] 10 mg PO QID PRN #20 capsule 02/25/18 Unknown Rx Promethazine [Phenergan SUPPOS] 50 mg MO Q6H PRN #20 supp.rect 02/25/18 Unknown Rx ALPRAZolam [Xanax TAB] 1 mg PO QID PRN #6 tab 03/02/18 Unknown Rx Butalb/Acetamin/Caff 50-325-40 1 tab PO Q6HR PRN #7 tab 12/30/19 Unknown Rx [Fioricet 50-325-40] Ondansetron [Zofran ODT TAB] 4 mg PO Q8HR PRN #7 tab.rapdis 12/30/19 Unknown Rx labetaloL [Labetalol 200mg TAB] 200 mg PO BID #60 tablet 12/30/19 Unknown Rx Doxycycline Hyclate [Doxycycline 100 mg PO Q12HR 10 Days #20 tab 11/28/20 Unknown Rx Hyclate TAB] Ibuprofen [Motrin 800 MG tab] 800 mg PO Q8HR PRN #20 tablet 11/28/20 Unknown Rx cephALEXin [Keflex] 500 mg PO Q12HR 10 Days #20 cap 11/28/20 Unknown Rx Allergies/Adverse Reactions: Allergies Allergy/AdvReac Type Severity Reaction Status Date / Time Sulfa (Sulfonamide Allergy Vomiting Verified 12/14/17 20:34 Antibiotics) ED Review of Systems ROS: Stated complaint: BOIL ON BOTH SHOULDERS Other details as noted in HPI Comment: All other systems reviewed and negative ED Past Medical Hx - Past Medical History Hx Hypertension: Yes Hx Diabetes: Yes Hx Psychiatric Treatment: Yes (Anxiety, Depression) Additional medical history: Drug abuse, IBS, ovarian cancer - Surgical History Hx Cholecystectomy: Yes Additional Surgical History: Novasure, Ovarian surgery, Multiple Abd. hernia repair, Hysterectomy, C section - Social History Smoking Status: Current Every Day Smoker Substance Use Type: None - Medications Home Medications: Home Medications Medication Instructions Recorded Confirmed Last Taken Type ALPRAZolam [Xanax TAB] 1 mg PO TID PRN 04/24/15 04/24/15 04/23/15 History Bentyl 1 tab PO HS 04/24/15 04/24/15 04/23/15 History Percocet 10/325 mg 10 - 325 mg PO Q6H 04/24/15 04/25/15 04/24/15 History Wellbutrin SR 300 mg PO DAILY 04/24/15 04/24/15 04/21/15 History traZODone [Desyrel] 100 mg PO HS 04/24/15 04/24/15 04/23/15 History Promethazine [Phenergan TAB] 25 mg PO Q6HR PRN #20 tab 12/15/17 Unknown Rx oxyCODONE /ACETAMINOPHEN [Percocet 1 - 2 tab PO Q6HR PRN #14 tablet 12/15/17 Unknown Rx 5/325] Dicyclomine [Bentyl] 10 mg PO QID PRN #20 capsule 02/25/18 Unknown Rx Promethazine [Phenergan SUPPOS] 50 mg MO Q6H PRN #20 supp.rect 02/25/18 Unknown Rx ALPRAZolam [Xanax TAB] 1 mg PO QID PRN #6 tab 03/02/18 Unknown Rx Butalb/Acetamin/Caff 50-325-40 1 tab PO Q6HR PRN #7 tab 12/30/19 Unknown Rx [Fioricet 50-325-40] Ondansetron [Zofran ODT TAB] 4 mg PO Q8HR PRN #7 tab.rapdis 12/30/19 Unknown Rx labetaloL [Labetalol 200mg TAB] 200 mg PO BID #60 tablet 12/30/19 Unknown Rx Doxycycline Hyclate [Doxycycline 100 mg PO Q12HR 10 Days #20 tab 11/28/20 Unknown Rx Hyclate TAB] Ibuprofen [Motrin 800 MG tab] 800 mg PO Q8HR PRN #20 tablet 11/28/20 Unknown Rx cephALEXin [Keflex] 500 mg PO Q12HR 10 Days #20 cap 11/28/20 Unknown Rx ED Physical Exam - General Limitations: No Limitations General appearance: alert, in no apparent distress - Head Head exam: Present: atraumatic, normocephalic - Eye Eye exam: Present: normal appearance - ENT ENT exam: Absent: normal external ear exam - Neck Neck exam: Present: full ROM - Respiratory Respiratory exam: Present: normal lung sounds bilaterally. Absent: chest wall tenderness, accessory muscle use - Cardiovascular Cardiovascular Exam: Present: regular rate - Extremities Exam Extremities exam: Present: full ROM - Expanded Upper Extremity Exam Left Shoulder Exam: Present: swelling, erythema Upper Arm exam: Present: normal inspection, full ROM Elbow exam: Present: normal inspection, full ROM Forearm Wrist exam: Present: normal inspection Hand Wrist exam: Present: normal inspection Vascular: Present: normal capillary refill Right Shoulder Exam: Present: full ROM, tenderness, swelling, erythema Upper Arm exam: Present: normal inspection Elbow exam: Present: normal inspection, full ROM Forearm Wrist exam: Present: normal inspection Hand Wrist exam: Present: normal inspection Vascular: Present: normal capillary refill - Back Exam Back exam: Present: normal inspection - Neurological Exam Neurological exam: Present: alert, oriented X3, normal gait - Psychiatric Psychiatric exam: Present: normal affect, normal mood - Skin Skin exam: Present: warm, dry, intact, normal color. Absent: rash ED Course Vital Signs 11/28/20 16:30 Temperature 97.8 F Pulse Rate 82 Respiratory 16 Rate Blood Pressure 136/78 [Left] O2 Sat by Pulse 100 Oximetry ED Medical Decision Making - Lab Data Result diagrams: 11/28/20 17:52 - Medical Decision Making 45-year-old female presents to the emergency room with a past medical history of hypertension depression anxiety and diabetes complaining of abscess to both of her shoulders. Patient endorsed that she has been on a drug binge and when she using IV drug use of meth and heroin. Patient states that she noticed the left shoulder pain when she bumped her left shoulder a couple days ago. Patient reports that she has been skin popping with drugs. She denies any fever or chills. Patient reports that she is partially vaccinated for Covid . She does report a history of sulfur allergies that causes hives. CBC CMP lactic acid. Labs are nonactionable. Patient will be discharge on doxycycline, Keflex and ib uprofen. Patient is encouraged to increase her fluid intake advance her diet as tolerated and refrain from drug using. Critical care attestation.: If time is entered above; I have spent that time in minutes in the direct care of this critically ill patient, excluding procedure time. ED Disposition Clinical Impression: Abscess of skin of left shoulder, Abscess of skin of right shoulder, Polysubstance abuse Disposition: HOME / SELF CARE / HOMELESS Is pt being admited?: No Does the pt Need Aspirin: No Condition: Stable Instructions: Substance Use Disorder and Mental Illness, Skin Abscess, Easy-to- Read Additional Instructions: Labs are stable. Please complete antibiotics as prescribed pain medication as needed. Follow-up with a primary care provider. Prescriptions: Doxycycline Hyclate [Doxycycline Hyclate TAB] 100 mg PO Q12HR 10 Days #20 tab cephALEXin [Keflex] 500 mg PO Q12HR 10 Days #20 cap Ibuprofen [Motrin 800 MG tab] 800 mg PO Q8HR PRN #20 tablet PRN Reason: Pain, Moderate (4-6) Referrals: MACARENA GOLDEN MD [Primary Care Provider] - 3-5 Days Time of Disposition: 18:59
[2020-11-28] MEDS ORDERED: TETANUS,DIPH,PERTUSS(ACELL) VACCINE 0.5 ML SYRINGE IM ONE (18:15)
[2020-11-28 18:21] LABS: Basophils % (Auto) 0.3 % (0.0-1.8); Eosinophils # (Auto) 0.2 K/mm3 (0.0-0.4); Eosinophils % (Auto) 1.3 % (0.0-4.3); Hematocrit 36.4 % (30.3-42.9); Hemoglobin 12.5 gm/dl (10.1-14.3); Lymphocytes # (Auto) 2.7 K/mm3 (1.2-5.4); Lymphocytes % (Auto) 22.1 % (13.4-35.0); Mean Corpuscular HGB Conc 34 % (30-34); Mean Corpuscular Volume 86 fl (79-97); Monocytes # (Auto) 0.8 K/mm3 (0.0-0.8); Monocytes % (Auto) 6.5 % (0.0-7.3); Platelet Count 261 K/mm3 (140-440); Red Blood Count 4.25 M/mm3 (3.65-5.03)
[2020-11-28 18:33] VITALS: BP 136/78
[2020-11-28 18:50] LABS: Alanine Aminotransferase 5 units/L (7-56); Albumin 3.7 g/dL (3.9-5); Blood Urea Nitrogen 20 mg/dL (7-17); Calcium 9.1 mg/dL (8.4-10.2); Hemolysis Index 10
[2020-11-28 18:54] LABS: BUN/Creatinine Ratio 40
== END 2020-11-28 19:19 | disposition home or self-care (01) ==
LOC: ED 15:33
DX: L02.414 Cutaneous abscess of left upper limb (principal); L02.413 Cutaneous abscess of right upper limb; F19.10 Other psychoactive substance abuse, uncomplicated; I10 Essential (primary) hypertension; E11.8 Type 2 diabetes mellitus with unspecified complications; Z88.2 Allergy status to sulfonamides; Z90.49 Acquired absence of other specified parts of digestive tract; Z90.710 Acquired absence of both cervix and uterus; F17.200 Nicotine dependence, unspecified, uncomplicated
CPT/HCPCS: 36415; 80053; 82140; 85025; 90471; 90715; 96372; 99283